=== PATIENT | male | born 1930 | race Caucasian/White ===

== ENCOUNTER 2018-09-06 11:21 | Emergency (ER) | payer MEDICARE, OTHER ==
[2018-09-06 11:34] VITALS: TEMP 97.6
[2018-09-06] MEDS ORDERED: SODIUM CHLORIDE 0.9% 1,000 ML IV STA (11:45)
[2018-09-06] MEDS ORDERED: MORPHINE SULFATE 4 MG/ML SYRINGE IV STA (11:45)
[2018-09-06] MEDS ORDERED: SODIUM CHLORIDE 0.9% 500 ML 500 ML IV STA (11:45)
[2018-09-06] MEDS ORDERED: LORazepam 2 MG/ML INJ IM STA (11:56)
--- NOTE | 2018-09-06 12:17 | ED ---
Fall HPI - General Chief Complaint: Fall Stated Complaint: Fall w/poss LOC Time Seen by Provider: 09/06/18 11:25 Source: patient Mode of arrival: EMS Limitations: altered mental status - History of Present Illness Initial Comments: This is an 88-year-old male presented ER status post fall, patient was found this morning. He checked by caregiver, patient had a fall down 2 steps, patient denies of complaint or injury from fall. Unknown history of the fall. MD Complaint: fall -: unknown Fall From: standing, down stairs (#) (2) When Fall Occurred: unsure Fall Witnessed: no Place Fall Occurred: home Loss of Consciousness: none Prolonged Down Time?: yes, unclear Symptoms Prior to Fall: none Severity: mild Severity scale (1-10): 1 Quality: aching Context: tripped/slipped Associated Symptoms: denies - Related Data Home Medications Medication Instructions Recorded Confirmed Finasteride [Proscar] 5 mg PO DAILY 07/11/16 09/06/18 Terazosin HCl [Hytrin] 10 mg PO HS 07/11/16 09/06/18 Allergies Allergy/AdvReac Type Severity Reaction Status Date / Time No Known Allergies Allergy Verified 09/06/18 12:16 Review of Systems ROS Statement: Those systems with pertinent positive or pertinent negative responses have been documented in the HPI. ROS Other: All systems not noted in ROS Statement are negative. Past Medical History Past Medical History: Cancer, Prostate Disorder Additional Past Medical History / Comment(s): brain ca History of Any Multi-Drug Resistant Organisms: None Reported Past Surgical History: Cholecystectomy, Orthopedic Surgery Past Psychological History: No Psychological Hx Reported Smoking Status: Never smoker Past Alcohol Use History: None Reported Past Drug Use History: None Reported General Exam Limitations: no limitations General appearance: alert, in no apparent distress Head exam: Present: atraumatic, normocephalic, normal inspection Eye exam: Present: normal appearance, PERRL, EOMI. Absent: scleral icterus, conjunctival injection, periorbital swelling ENT exam: Present: normal exam, mucous membranes moist Neck exam: Present: normal inspection. Absent: tenderness, meningismus, lymphadenopathy Respiratory exam: Present: normal lung sounds bilaterally. Absent: respiratory distress, wheezes, rales, rhonchi, stridor Cardiovascular Exam: Present: regular rate, normal rhythm, normal heart sounds. Absent: systolic murmur, diastolic murmur, rubs, gallop, clicks GI/Abdominal exam: Present: soft, normal bowel sounds. Absent: distended, tenderness, guarding, rebound, rigid Extremities exam: Present: normal inspection, full ROM, normal capillary refill. Absent: tenderness, pedal edema, joint swelling, calf tenderness Back exam: Present: normal inspection Neurological exam: Present: alert, oriented X3, CN II-XII intact Psychiatric exam: Present: normal affect, normal mood Skin exam: Present: warm, dry, intact, normal color. Absent: rash Course Vital Signs 09/06/18 09/06/18 09/06/18 11:24 14:33 15:57 Temperature 97.6 F Pulse Rate 55 L 57 L 57 L Respiratory 18 16 18 Rate Blood Pressure 156/76 155/60 147/69 O2 Sat by Pulse 100 100 99 Oximetry - Reevaluation(s) Reevaluation #1: Record is reviewed results negative patient can be discharged home Results negative and patient can be discharged home Medical Decision Making - Medical Decision Making 89 male the ER for evaluation. Patient presents today for evaluation of fall. Patient had unknown downtime, no injury from gall, patient can be dischartfed home - Lab Data Result diagrams: 09/06/18 12:06 09/06/18 12:06 Lab Results 09/06/18 09/06/18 09/06/18 Range/Units 12:06 12:06 12:06 WBC 5.8 (3.8-10.6) k/uL RBC 4.23 L (4.30-5.90) m/uL Hgb 13.0 (13.0-17.5) gm/dL Hct 39.1 (39.0-53.0) % MCV 92.4 (80.0-100.0) fL MCH 30.6 (25.0-35.0) pg MCHC 33.2 (31.0-37.0) g/dL RDW 12.7 (11.5-15.5) % Plt Count 91 L (150-450) k/uL Neutrophils % (Manual) 65 % Band Neutrophils % 1 % Lymphocytes % (Manual) 28 % Monocytes % (Manual) 5 % Eosinophils % (Manual) 2 % Metamyelocytes % 1 % Neutrophils # (Manual) 3.80 (1.3-7.7) k/uL Lymphocytes # (Manual) 1.62 (1.0-4.8) k/uL Monocytes # (Manual) 0.29 (0-1.0) k/uL Eosinophils # (Manual) 0.12 (0-0.7) k/uL Metamyelocytes # (Man) 0.06 H (0) k/uL Nucleated RBCs 0 (0-0) /100 WBC Manual Slide Review Performed Poikilocytosis (manual Present PT (9.0-12.0) sec INR (<1.2) APTT (22.0-30.0) sec Sodium 142 (137-145) mmol/L Potassium 4.5 (3.5-5.1) mmol/L Chloride 108 H (98-107) mmol/L Carbon Dioxide 26 (22-30) mmol/L Anion Gap 8 mmol/L BUN 30 H (9-20) mg/dL Creatinine 0.87 (0.66-1.25) mg/dL Est GFR (CKD-EPI)AfAm 89 (>60 ml/min/1.73 sqM) Est GFR (CKD-EPI)NonAf 77 (>60 ml/min/1.73 sqM) Glucose 109 H (74-99) mg/dL Lactic Ac Sepsis Rflx Plasma Lactic Acid Vishal (0.7-2.0) mmol/L Calcium 9.1 (8.4-10.2) mg/dL Phosphorus 3.0 (2.5-4.5) mg/dL Magnesium 2.3 (1.6-2.3) mg/dL Total Bilirubin 1.4 H (0.2-1.3) mg/dL AST 32 (17-59) U/L ALT 30 (21-72) U/L Alkaline Phosphatase 59 (38-126) U/L Total Creatine Kinase 94 (55-170) U/L CK-MB (CK-2) 2.2 (0.0-2.4) ng/mL CK-MB (CK-2) Rel Index 2.3 Troponin I 0.039 H* (0.000-0.034) ng/mL Total Protein 6.0 L (6.3-8.2) g/dL Albumin 3.5 (3.5-5.0) g/dL Urine Color Urine Appearance (Clear) Urine pH (5.0-8.0) Ur Specific Converse (1.001-1.035) Urine Protein (Negative) Urine Glucose (UA) (Negative) Urine Ketones (Negative) Urine Blood (Negative) Urine Nitrite (Negative) Urine Bilirubin (Negative) Urine Urobilinogen (<2.0) mg/dL Ur Leukocyte Esterase (Negative) 09/06/18 09/06/18 09/06/18 Range/Units 12:06 12:06 12:40 WBC (3.8-10.6) k/uL RBC (4.30-5.90) m/uL Hgb (13.0-17.5) gm/dL Hct (39.0-53.0) % MCV (80.0-100.0) fL MCH (25.0-35.0) pg MCHC (31.0-37.0) g/dL RDW (11.5-15.5) % Plt Count (150-450) k/uL Neutrophils % (Manual) % Band Neutrophils % % Lymphocytes % (Manual) % Monocytes % (Manual) % Eosinophils % (Manual) % Metamyelocytes % % Neutrophils # (Manual) (1.3-7.7) k/uL Lymphocytes # (Manual) (1.0-4.8) k/uL Monocytes # (Manual) (0-1.0) k/uL Eosinophils # (Manual) (0-0.7) k/uL Metamyelocytes # (Man) (0) k/uL Nucleated RBCs (0-0) /100 WBC Manual Slide Review Poikilocytosis (manual PT 10.7 (9.0-12.0) sec INR 1.1 (<1.2) APTT 22.3 (22.0-30.0) sec Sodium (137-145) mmol/L Potassium (3.5-5.1) mmol/L Chloride (98-107) mmol/L Carbon Dioxide (22-30) mmol/L Anion Gap mmol/L BUN (9-20) mg/dL Creatinine (0.66-1.25) mg/dL Est GFR (CKD-EPI)AfAm (>60 ml/min/1.73 sqM) Est GFR (CKD-EPI)NonAf (>60 ml/min/1.73 sqM) Glucose (74-99) mg/dL Lactic Ac Sepsis Rflx Y Plasma Lactic Acid Vishal 2.3 H* (0.7-2.0) mmol/L Calcium (8.4-10.2) mg/dL Phosphorus (2.5-4.5) mg/dL Magnesium (1.6-2.3) mg/dL Total Bilirubin (0.2-1.3) mg/dL AST (17-59) U/L ALT (21-72) U/L Alkaline Phosphatase (38-126) U/L Total Creatine Kinase (55-170) U/L CK-MB (CK-2) (0.0-2.4) ng/mL CK-MB (CK-2) Rel Index Troponin I (0.000-0.034) ng/mL Total Protein (6.3-8.2) g/dL Albumin (3.5-5.0) g/dL Urine Color Urine Appearance (Clear) Urine pH (5.0-8.0) Ur Specific Converse (1.001-1.035) Urine Protein (Negative) Urine Glucose (UA) (Negative) Urine Ketones (Negative) Urine Blood (Negative) Urine Nitrite (Negative) Urine Bilirubin (Negative) Urine Urobilinogen (<2.0) mg/dL Ur Leukocyte Esterase (Negative) 09/06/18 Range/Units 13:56 WBC (3.8-10.6) k/uL RBC (4.30-5.90) m/uL Hgb (13.0-17.5) gm/dL Hct (39.0-53.0) % MCV (80.0-100.0) fL MCH (25.0-35.0) pg MCHC (31.0-37.0) g/dL RDW (11.5-15.5) % Plt Count (150-450) k/uL Neutrophils % (Manual) % Band Neutrophils % % Lymphocytes % (Manual) % Monocytes % (Manual) % Eosinophils % (Manual) % Metamyelocytes % % Neutrophils # (Manual) (1.3-7.7) k/uL Lymphocytes # (Manual) (1.0-4.8) k/uL Monocytes # (Manual) (0-1.0) k/uL Eosinophils # (Manual) (0-0.7) k/uL Metamyelocytes # (Man) (0) k/uL Nucleated RBCs (0-0) /100 WBC Manual Slide Review Poikilocytosis (manual PT (9.0-12.0) sec INR (<1.2) APTT (22.0-30.0) sec Sodium (137-145) mmol/L Potassium (3.5-5.1) mmol/L Chloride (98-107) mmol/L Carbon Dioxide (22-30) mmol/L Anion Gap mmol/L BUN (9-20) mg/dL Creatinine (0.66-1.25) mg/dL Est GFR (CKD-EPI)AfAm (>60 ml/min/1.73 sqM) Est GFR (CKD-EPI)NonAf (>60 ml/min/1.73 sqM) Glucose (74-99) mg/dL Lactic Ac Sepsis Rflx Plasma Lactic Acid Vishal (0.7-2.0) mmol/L Calcium (8.4-10.2) mg/dL Phosphorus (2.5-4.5) mg/dL Magnesium (1.6-2.3) mg/dL Total Bilirubin (0.2-1.3) mg/dL AST (17-59) U/L ALT (21-72) U/L Alkaline Phosphatase (38-126) U/L Total Creatine Kinase (55-170) U/L CK-MB (CK-2) (0.0-2.4) ng/mL CK-MB (CK-2) Rel Index Troponin I (0.000-0.034) ng/mL Total Protein (6.3-8.2) g/dL Albumin (3.5-5.0) g/dL Urine Color Light Yellow Urine Appearance Clear (Clear) Urine pH 8.0 (5.0-8.0) Ur Specific Converse 1.010 (1.001-1.035) Urine Protein Negative (Negative) Urine Glucose (UA) Negative (Negative) Urine Ketones Negative (Negative) Urine Blood Negative (Negative) Urine Nitrite Negative (Negative) Urine Bilirubin Negative (Negative) Urine Urobilinogen <2.0 (<2.0) mg/dL Ur Leukocyte Esterase Negative (Negative) - EKG Data -: EKG Interpreted by Me (EKG shows junctional rhythm rate of 57, QRS 100, QTc 469) - Radiology Data Radiology results: report reviewed (Evasive C-spine negative for acute disease, chest x-ray pelvis x-ray negative for traumatic injury), image reviewed Disposition Clinical Impression: Fall Disposition: HOME SELF-CARE Condition: Good Instructions: Fall Prevention for Older Adults (ED) Is patient prescribed a controlled substance at d/c from ED?: No Referrals: None,Stated [Primary Care Provider] - 1-2 days
[2018-09-06 12:34] LABS: INR 1.1 (<1.2); Partial Thromboplastin Time 22.3 sec (22.0-30.0); Prothrombin Time 10.7 sec (9.0-12.0)
[2018-09-06 12:38] LABS: HCT 39.1 % (39.0-53.0); MCH 30.6 pg (25.0-35.0); MCHC 33.2 g/dL (31.0-37.0); MCV 92.4 fL (80.0-100.0); Mean Platelet Volume 6.8; RBC 4.23 m/uL (4.30-5.90); RDW 12.7 % (11.5-15.5); WBC 5.8 k/uL (3.8-10.6)
[2018-09-06 12:41] LABS: Albumin 3.5 g/dL (3.5-5.0); Calcium 9.1 mg/dL (8.4-10.2); Magnesium 2.3 mg/dL (1.6-2.3); Potassium 4.5 mmol/L (3.5-5.1); Total Bilirubin 1.4 mg/dL (0.2-1.3)
[2018-09-06 12:59] LABS: Metamyelocytes # (M) 0.06 k/uL (0); Metamyelocytes % 1 %; Nucleated Red Blood Cells 0 /100 WBC (0-0)
[2018-09-06 13:01] LABS: Band Neutrophils % 1 %; Creatine Kinase MB 2.2 ng/mL (0.0-2.4); Eosinophils # (M) 0.12 k/uL (0-0.7); Lymphocytes # (M) 1.62 k/uL (1.0-4.8); Monocytes # (M) 0.29 k/uL (0-1.0); Neutrophils % (M) 65 %; Total Cells Counted 200
[2018-09-06 13:02] LABS: Platelet Count 91 k/uL (150-450)
[2018-09-06 13:03] LABS: Poikilocytosis (M) Present; Troponin I 0.039 ng/mL (0.000-0.034)
--- NOTE | 2018-09-06 13:24 | CT ---
EXAMINATION TYPE: CT brain chiquitaine mabel con DATE OF EXAM: 09/06/2018 COMPARISON: HISTORY: Fall with possible LOC CT DLP: 1294.1 mGycm Automated exposure control for dose reduction was used. TECHNIQUE: CT scan of the head and cervical spine are performed without contrast. FINDINGS: Moderate generalized degenerative change with a greater central component. Areas of low-a ttenuation the white matter are nonspecific. No midline shift or acute hemorrhage. Intracranial ather osclerotic changes are noted. Area of low attenuation left basal ganglia most likely the basis of pre vious ischemia. Assessment of cervical spine no canal is limited due to artifact and noncontrast technique and poor r esolution. There is multilevel degenerative disc disease and facet arthropathy. Large anterior hypert rophic spurs are seen at multiple levels with severe degenerative disc disease at all levels. Multile jyoti foraminal encroachment noted. IMPRESSION: 1. There is no acute fracture or dislocation evident in the cervical spine. Multilevel degenerative d isc disease, hypertrophic changes and facet arthropathy. Multilevel foraminal encroachment. 2. No acute intracranial hemorrhage, mass effect, or midline shift is seen. Degenerative and nonspeci fic white matter changes. Greater central component would include normal pressure hydrocephalus withi n the differential diagnosis.
[2018-09-06 14:13] LABS: Appearance,Urine Clear (Clear); Bilirubin,Urine Negative (Negative); Blood,Urine Negative (Negative); Color,Urine Light Yellow; Glucose,Urine (UA) Negative (Negative); Ketones,Urine Negative (Negative); Leukocyte Esterase,Urine Negative (Negative); Nitrite,Urine Negative (Negative); Protein,Urine Negative (Negative); Urobilinogen,Urine <2.0 mg/dL (<2.0)
[2018-09-06 14:34] VITALS: PULSE 57
--- NOTE | 2018-09-06 15:11 | XR ---
EXAMINATION TYPE: XR chest 2V DATE OF EXAM: 09/06/2018 COMPARISON: Prior chest x-ray 07/11/2016 HISTORY: Trauma and pain TECHNIQUE: Frontal and lateral views of the chest are obtained. FINDINGS: Surgical clips present in the upper abdomen right upper quadrant. Cardiac mediastinal silh ouette, pulmonary vascularity and carson are stable. No evident airspace disease, pneumothorax, or pleu ral effusion. Arthropathy again noted within the shoulders. The aorta is dense. IMPRESSION: No acute cardiopulmonary process.
--- NOTE | 2018-09-06 15:14 | XR ---
Lumbar spine HISTORY: Trauma and pain 3 views of the lumbar spine There is a retrolisthesis grade 1 L2-3. Lumbar vertebral bodies show preserved height. Bone mineraliz ation is reduced. There is loss of disc height at intervertebral levels with multilevel vacuum phenom enon, endplate spondylosis. Sclerosis present in the posterior elements of the lower lumbar spine. T1 2 shows mild anterior wedging. No evident retropulsion. Vascular calcifications noted incidentally. S urgical clips in the right upper quadrant. IMPRESSION: Degenerative disc disease, facet arthropathy, osteopenia. Mild anterior wedge compression deformity suspected T12.
--- NOTE | 2018-09-06 15:16 | XR ---
AP pelvis HISTORY: Trauma and pain Frontal view of the pelvis submitted on 2 images correlated prior exam 07/11/2016 Appearance is stable. Vascular calcifications are present. Suspect there is chondrocalcinosis, joint space loss within the hips. Bone mineralization is reduced. IMPRESSION: No acute fracture or dislocation is evident.
[2018-09-06 15:59] VITALS: BP 147/69; RESP 18
== END 2018-09-06 15:57 | disposition home or self-care (01) ==
LOC: EC 11:21
DX: Z04.3 Encounter for examination and observation following other accident (principal); N42.9 Disorder of prostate, unspecified; Z79.899 Other long term (current) drug therapy; Z85.841 Personal history of malignant neoplasm of brain; W10.9XXA Fall (on) (from) unspecified stairs and steps, initial encounter; Y92.009 Unspecified place in unspecified non-institutional (private) residence as the place of occurrence of the external cause
CPT/HCPCS: 99285; 96372; 36415; 93005; 80053; 82550; 82553; 83605; 83735; 84100; 84484; 85025; 85610; 85730; 81003; 72100; 72170; 71046; 72125; 70450; J2060

== ENCOUNTER 2018-11-17 09:30 | Emergency (ER) | payer MEDICARE ==
[2018-11-17 09:43] VITALS: BP 165/79; PULSE 65; RESP 18; TEMP 97.8
[2018-11-17] MEDS ORDERED: DIPH,PERTUS(ACELL)TETVAC-LF 0.5 ML VIAL IM ONE (09:43)
[2018-11-17] MEDS ORDERED: LIDOCAINE 1% INJ 10MG/ML (20 ML MDV) SQ ONE (09:48)
--- NOTE | 2018-11-17 09:48 | ED ---
General Adult HPI - General Source: patient, EMS, RN notes reviewed Mode of arrival: EMS Limitations: no limitations <Christiano Moreno - Last Filed: 11/17/18 10:40> <Evans Long - Last Filed: 11/17/18 11:00> - General Chief complaint: Fall Stated complaint: FALL Time Seen by Provider: 11/17/18 09:31 - History of Present Illness Initial comments: Patient is a pleasant 88 -year-old male presenting to the emergency department following a fall. Patient states he was outside and slipped and fell. Patient states he slipped on ice. Patient did strike his forehead. Patient believes he may have loss consciousness for a second. Patient denies any significant discomfort at this time. No headache. No neck pain. No back pain. No chest pain or dyspnea. No abdominal pain. No extremity injury. Patient does not feel confused. Patient denies any weakness. (Christiano Moreno) - Related Data Home Medications Medication Instructions Recorded Confirmed Finasteride [Proscar] 5 mg PO DAILY 07/11/16 11/17/18 Terazosin HCl [Hytrin] 10 mg PO HS 07/11/16 11/17/18 Allergies Allergy/AdvReac Type Severity Reaction Status Date / Time No Known Allergies Allergy Verified 11/17/18 09:53 Review of Systems ROS Other: All systems not noted in ROS Statement are negative. Constitutional: Denies: fever Eyes: Denies: eye pain ENT: Denies: ear pain Respiratory: Denies: cough Cardiovascular: Denies: chest pain Endocrine: Denies: fatigue Gastrointestinal: Denies: abdominal pain Genitourinary: Denies: dysuria Musculoskeletal: Denies: back pain Skin: Denies: rash Neurological: Denies: headache, weakness, confusion, abnormal gait <Christiano Moreno - Last Filed: 11/17/18 10:40> ROS Other: All systems not noted in ROS Statement are negative. <Evans Long - Last Filed: 11/17/18 11:00> ROS Statement: Those systems with pertinent positive or pertinent negative responses have been documented in the HPI. Past Medical History Past Medical History: Cancer, Prostate Disorder Additional Past Medical History / Comment(s): brain ca History of Any Multi-Drug Resistant Organisms: None Reported Past Surgical History: Cholecystectomy, Orthopedic Surgery Past Psychological History: No Psychological Hx Reported Smoking Status: Never smoker Past Alcohol Use History: None Reported Past Drug Use History: None Reported <Christiano Moreno - Last Filed: 11/17/18 10:40> General Exam Limitations: no limitations General appearance: alert, in no apparent distress Head exam: Present: other (Forehead laceration) Eye exam: Present: normal appearance, PERRL, EOMI. Absent: nystagmus ENT exam: Present: normal oropharynx Neck exam: Present: normal inspection. Absent: tenderness Respiratory exam: Present: normal lung sounds bilaterally Cardiovascular Exam: Present: regular rate, normal rhythm GI/Abdominal exam: Present: soft. Absent: tenderness Extremities exam: Present: normal inspection, full ROM. Absent: tenderness Back exam: Present: normal inspection. Absent: tenderness, vertebral tenderness Neurological exam: Present: alert, CN II-XII intact. Absent: motor sensory deficit Expanded Neurological exam: Present: protecting the airway Patient oriented to: Present: person, place. Absent: time (Not oriented to year which he states is normal however is oriented to month and president.) Speech: Present: fluid speech Cranial nerves: EOM's Intact: Normal Sensory exam: Upper Extremity Light Touch: Normal, Lower Extremity Light Touch: Normal Motor strength exam: RUE: 5, LUE: 5, RLE: 5, LLE: 5 Eye Response: (4) open spontaneously Motor Response: (6) obeys commands Verbal Response: (5) oriented Psychiatric exam: Present: normal affect, normal mood Skin exam: Present: other (Forehead laceration) <Christiano Moreno - Last Filed: 11/17/18 10:40> Vital Signs 11/17/18 09:34 Temperature 97.8 F Pulse Rate 65 Respiratory 18 Rate Blood Pressure 165/79 O2 Sat by Pulse 100 Oximetry Procedures - Laceration Laceration #1 Consent Obtained: verbal consent Indication: laceration Site: face Size (cm): 3 Description: linear Depth: involves muscle layer Anesthetic Used: lidocaine 1% Anesthesia Technique: local infiltration Amount (mls): 5 Pre-repair: wound explored, irrigated extensively (with saline pressure irrigation), deep structures intact Type of Sutures: other (ethilon) Size of Sutures: 5-0 Number of Sutures: 7 Technique: simple, interrupted Patient Tolerated Procedure: well, no complications <Evans Long - Last Filed: 11/17/18 11:00> Medical Decision Making - Radiology Data Radiology results: report reviewed (Computed tomography scan of the brain shows no acute manic process. Moderate atrophy. Ventriculomegaly somewhat more pronounced, component of NPH not excluded. CT cervical spine specs underlying DISH, no fracture or malalignment.) <Christiano Moreno - Last Filed: 11/17/18 10:40> <Evans Long - Last Filed: 11/17/18 11:00> - Medical Decision Making Patient reevaluated and updated. (Christiano Moreno) Disposition Is patient prescribed a controlled substance at d/c from ED?: No Time of Disposition: 10:42 <Christiano Moreno - Last Filed: 11/17/18 10:40> <Evans Long - Last Filed: 11/17/18 11:00> Clinical Impression: Fall, Head injury Disposition: HOME SELF-CARE Condition: Stable Instructions (If sedation given, give patient instructions): Fall Prevention for Older Adults (ED), Head Injury (ED) Additional Instructions: Please follow-up with primary care physician in the next day or 2 for recheck. Please have primary care physician review computed tomography scan results. Suture removal in 7 days. Return for increased falls, change in mental status, weakness, worsening symptoms or any other concerns. Referrals: Tanvi Grimes MD [STAFF PHYSICIAN] - 1-2 days
--- NOTE | 2018-11-17 10:25 | CT ---
EXAMINATION TYPE: CT brain chiquitaine wo con DATE OF EXAM: 11/17/2018 COMPARISON: 09/06/2018 HISTORY: 88-year-old male Fall and pain CT DLP: 1643.2 mGycm Automated exposure control for dose reduction was used. Technique: Examination of the head was done in axial plane without intravenous contrast. Coronal and sagittal reconstructions performed. CT of the cervical spine was obtained in axial plane without intravenous injection of contrast mater ial. Coronal and sagittal reformatted images were obtained from the axial views for evaluation of f ractures, spinal alignment and canal. FINDINGS: Head: There is no evidence of acute intracranial hemorrhage, acute ischemic changes, mass, mass-effect, or extra-axial fluid collection. There is no effacement of cerebral sulci or basal subarachnoid cister ns. There is no hydrocephalus. There is no midline shift. Guadalupe-white matter distinction is preserv ed. Moderate generalized supratentorial volume loss with slightly greater involvement of the central cere bral and similar secondary mild ventriculomegaly. Old lacunar infarct or prominent perivascular space left basal ganglia. Old blowout fracture of the right orbital floor. Mastoid air cells are pneumatized. No calvarial frac ture. Cervical spine: Bridging anterior endplate spondylosis multiple levels. Some bony sclerosis across some of the associate pathologist ior elements as well, particularly on the left side. Alignment is maintained. No acute fracture seen. No previous cervical junction, predental space widening, or prevertebral soft tissue swelling. Advanc ed multilevel degenerative disc disease. Sagittal and coronal reformatted images confirm above findings. COMBINED IMPRESSION: 1. No acute intracranial abnormality seen. Similar moderate atrophy. Ventriculomegaly is somewhat mor e pronounced compared to the degree of cerebral volume loss. A component of NPH is not excluded. 2. 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 No acute fracture or malalignment of the cervical spine.
== END 2018-11-17 11:35 | disposition home or self-care (01) ==
LOC: EC 09:30
DX: S01.81XA Laceration without foreign body of other part of head, initial encounter (principal); N42.9 Disorder of prostate, unspecified; Z85.841 Personal history of malignant neoplasm of brain; Z79.899 Other long term (current) drug therapy; W00.0XXA Fall on same level due to ice and snow, initial encounter
CPT/HCPCS: 72125; 70450; 90715; 99284; 12013; 90471; J2001